=== PATIENT | female | born 1990 | race African-American/Black ===

== ENCOUNTER 2017-08-11 00:06 | Emergency (ER) | payer MEDICAID ==
[~2017-08-11] VITALS: Ht 172.7 cm; Wt 82.1 kg
[2017-08-11 00:16] VITALS: Ht 172.7 cm; Wt 82.1 kg
[2017-08-11 01:24] VITALS: BP 125/68
== END 2017-08-11 01:24 | disposition home or self-care (01) ==
LOC: ED 00:06
DX: K04.7 Periapical abscess without sinus (principal)